=== PATIENT | female | born 1990 | race Caucasian/White ===

== ENCOUNTER → 2019-08-14 | Outpatient (CLI) | payer BC ==
--- NOTE | 2019-08-14 17:55 | RAD ---
CT Head W/O Contrast: History: Fell hit head 2 days ago, decreased smell and taste Comparison: none Axial images were obtained without contrast. The villalpando and white matter appears normal and symmetrical for the patients age. There is no mass effect, extraaxial fluid collections or hydrocephalus. There is no gross bleed. There is no focal loss of villalpando-white matter distinction to suggest acute ischemia, i.e. stroke. There is fluid in the mastoid air cells on the left. Impression: 1. Fluid in the mastoid air cells on the left is nonspecific and can be incidental or can be secondary to mastoiditis. 2. No acute intracranial findings. PQRS Compliance Statement: One or more of the following individualized dose reduction techniques were utilized for this examination: 1. Automated exposure control 2. Adjustment of the mA and/or kV according to patient size 3. Use of iterative reconstruction technique Electronically signed by: Bethel Encarnacion III, MD (08/14/2019 5:53 PM) [id number]
== END | disposition home or self-care (01) ==
LOC: RAD 17:32
PROVIDERS: ATTEND Family Medicine
DX: S06.0X0D Concussion without loss of consciousness, subsequent encounter (principal); X58.XXXD Exposure to other specified factors, subsequent encounter
CPT/HCPCS: 70450